=== PATIENT | female | born 2000 | race Two or more races ===

== ENCOUNTER → 2023-08-07 | Outpatient (CLI) | payer BC ==
[2023-08-07 08:48] LABS: Basophils # (auto) 0 10 ^3/uL (0-0.2); Basophils % (auto) 0.5 % (0.0-2.0); Eosinophils # (auto) 0.1 10 ^3/uL (0-0.8); Eosinophils % (auto) 1.5 % (0.0-7.0); Hematocrit 40.6 % (36.0-46.0); Hemoglobin 13.8 g/dL (12.2-16.2); Lymphocytes # (auto) 2.2 10 ^3/uL (0.4-5.4); Lymphocytes % (auto) 26.5 % (10.0-50.0); Mean Corpuscular Hemoglobin 30.6 pg (28.0-32.0); Mean Corpuscular Volume 89.9 fL (80.0-100.0); Monocytes # (auto) 0.6 10 ^3/uL (0-1.3); Monocytes % (auto) 7.8 % (0.0-12.0); Neutrophils # (auto) 5.3 10 ^3/uL (1.6-8.6); Neutrophils % (auto) 63.7 % (37.0-80.0); Nucleated Red Blood Cells % 0.1 %; Red Blood Cells 4.52 10^6/uL (4.0-5.20); Red Cell Distribution Width 13.3 % (11.8-14.3); White Blood Cell 8.3 10^3/uL (4.4-10.8)
[2023-08-07 08:54] LABS: Urine Bacteria FEW /hpf (None Seen); Urine Blood Negative /uL (Negative); Urine Clarity Clear (Clear); Urine Color Yellow (Yellow); Urine Mucus FEW (None Seen); Urine Protein, UAD TRACE (Negative); Urine Specific Gravity 1.025 (1.001-1.035); Urine Urobilinogen Normal (Negative); Urine WBC 1 /hpf (0 - 5); Urine pH 6.5 (5.0-8.0)
[2023-08-07 09:17] LABS: Alanine Aminotransferase 10 U/L (7-40); Albumin 4.5 g/dL (3.2-4.8); Alkaline Phosphatase 63 U/L (46-116); Anion Gap 6 (5-15); Aspartate Aminotransferase 12 U/L (13-40); Calcium 9.9 mg/dL (8.5-10.1); Carbon Dioxide 25 mmol/L (20-30); Chloride 106 mmol/L (98-107); Cholesterol 137 mg/dL (< 200); Glucose 83 mg/dL (74-106); LDL Cholesterol 87 mg/dL (< 100); Potassium 4.3 mmol/L (3.5-5.1); Sodium 137 mmol/L (136-145); Triglycerides 65 mg/dL (< 150)
[2023-08-07 09:18] LABS: Bilirubin, Total 1.3 mg/dL (0.2-1.0); HDL Cholesterol 44 mg/dL (40-59); Total Protein 7.5 g/dL (5.7-8.2)
[2023-08-07 09:21] LABS: BUN/Creatinine Ratio 6.8 (10.0-20.0); Blood Urea Nitrogen < 5 mg/dL (9-23)
[2023-08-07 09:25] LABS: Creatinine, Urine 276.7 mg/dL (30.0-125.0)
[2023-08-07 09:29] LABS: Thyroid Stimulating Hormone 0.51 uIU/mL (0.55-4.78)
== END | disposition home or self-care (01) ==
LOC: LAB 07:54
PROVIDERS: ATTEND Family Medicine
DX: Z13.29 Encounter for screening for other suspected endocrine disorder (principal); Z13.220 Encounter for screening for lipoid disorders; Z13.1 Encounter for screening for diabetes mellitus
CPT/HCPCS: 36415; 80053; 80061; 81001; 82043; 82570; 83036; 84439; 84443; 84702; 85025; 87086

== ENCOUNTER 2023-10-28 09:54 | Inpatient (IN) | payer BC ==
[~2023-10-28] VITALS: Ht 162.6 cm; Wt 61.5 kg
[2023-10-28] MEDS: D5W/LACTATED RINGERS 1,000 ML IV ONE (13:00)
[2023-10-28] MEDS: ACETAMINOPHEN 325 MG TAB PO ONE (13:00)
[2023-10-28] MEDS: PROCHLORPERAZINE EDISYLATE 5 MG/ML 2ML VIAL IV ONE (13:00)
[2023-10-28 13:27] LABS: Basophils # (auto) 0 10 ^3/uL (0-0.2); Basophils % (auto) 0.2 % (0.0-2.0); Eosinophils # (auto) 0 10 ^3/uL (0-0.8); Eosinophils % (auto) 0.2 % (0.0-7.0); Hematocrit 39.5 % (36.0-46.0); Hemoglobin 13.5 g/dL (12.2-16.2); Lymphocytes # (auto) 1.9 10 ^3/uL (0.4-5.4); Lymphocytes % (auto) 14.5 % (10.0-50.0); Mean Corpuscular Hemoglobin 31.3 pg (28.0-32.0); Mean Corpuscular Hgb Conc. 34.2 g/dL (32.0-36.0); Mean Corpuscular Volume 91.7 fL (80.0-100.0); Monocytes # (auto) 0.6 10 ^3/uL (0-1.3); Monocytes % (auto) 4.3 % (0.0-12.0); Neutrophils # (auto) 10.4 10 ^3/uL (1.6-8.6); Neutrophils % (auto) 80.8 % (37.0-80.0); Nucleated Red Blood Cells % 0.1 %; Red Blood Cells 4.31 10^6/uL (4.0-5.20); Red Cell Distribution Width 13.6 % (11.8-14.3); White Blood Cell 12.9 10^3/uL (4.4-10.8)
[2023-10-28 13:47] LABS: Alanine Aminotransferase 11 U/L (7-40); Albumin 4.1 g/dL (3.2-4.8); Alkaline Phosphatase 57 U/L (46-116); Anion Gap 6 (5-15); Aspartate Aminotransferase 17 U/L (13-40); BUN/Creatinine Ratio 10.9 (10.0-20.0); Bilirubin, Total 1.4 mg/dL (0.2-1.0); Blood Urea Nitrogen 6 mg/dL (9-23); Calcium 9.2 mg/dL (8.7-10.4); Carbon Dioxide 23 mmol/L (20-30); Chloride 108 mmol/L (98-107); Glucose 71 mg/dL (74-106); Potassium 3.9 mmol/L (3.5-5.1); Sodium 137 mmol/L (136-145); Total Protein 7.4 g/dL (5.7-8.2)
[2023-10-28 13:52] LABS: Urine Bacteria FEW /hpf (None Seen); Urine Blood Negative /uL (Negative); Urine Clarity HAZY (Clear); Urine Color Yellow (Yellow); Urine Mucus FEW (None Seen); Urine Protein, UAD 1+ (Negative); Urine Specific Gravity 1.025 (1.001-1.035); Urine Urobilinogen Normal (Negative); Urine WBC 6 /hpf (0 - 5); Urine pH 7.5 (5.0-8.0)
[2023-10-28 14:06] LABS: Amphetamine Screen, Urine Neg (NEGATIVE); Barbiturate Scree,Urine Neg (NEGATIVE); Benzodiazephine Screen, Urine Neg (NEGATIVE); Cannabinoid Screen, Urine Neg (NEGATIVE); Cocaine Screen, Urine Neg (NEGATIVE); Opiate Scree,Urine Neg (NEGATIVE); Phencyclidine Screen, Urine Neg (NEGATIVE)
[2023-10-28] MEDS: cefTRIAXone 1GM/50ML D5W 50 ML IV ONE (15:00)
[2023-10-28] MEDS ORDERED: PROCHLORPERAZINE EDISYLATE 5 MG/ML 2ML VIAL IV PRN (15:00)
[2023-10-28] MEDS ORDERED: MORPHINE SULFATE INJ 2 MG/ml SYRG IV PRN (15:00)
[2023-10-28] MEDS ORDERED: NITROGLYCERIN 0.4 MG SL TAB SL PRN (15:00)
[2023-10-28] MEDS ORDERED: ACETAMINOPHEN 325 MG TAB PO PRN (15:00)
[2023-10-28] MEDS ORDERED: DOCUSATE SOD 100 MG CAP PO PRN (15:00)
[2023-10-28 18:15] VITALS: PULSE 92; RESP 16; O2SAT 96
[2023-10-28] MEDS: SODIUM CHLORIDE 0.9% 1,000 ML IV SCH (18:30)
[2023-10-28 20:00] VITALS: BP 101/57; PULSE 65; RESP 19; TEMP 98.7; O2SAT 98
[2023-10-29] VITALS (8 sets, daily range): BP systolic 87–103; BP diastolic 44–75; PULSE 70–86; RESP 16–20; TEMP 97.3–98.5; O2SAT 95–100
[2023-10-29 05:37] LABS: Basophils # (auto) 0 10 ^3/uL (0-0.2); Basophils % (auto) 0.3 % (0.0-2.0); Eosinophils # (auto) 0.1 10 ^3/uL (0-0.8); Eosinophils % (auto) 1.4 % (0.0-7.0); Hematocrit 33.5 % (36.0-46.0); Hemoglobin 11.6 g/dL (12.2-16.2); Lymphocytes # (auto) 2.5 10 ^3/uL (0.4-5.4); Lymphocytes % (auto) 25.8 % (10.0-50.0); Mean Corpuscular Hemoglobin 31.3 pg (28.0-32.0); Mean Corpuscular Hgb Conc. 34.5 g/dL (32.0-36.0); Mean Corpuscular Volume 90.8 fL (80.0-100.0); Monocytes # (auto) 0.7 10 ^3/uL (0-1.3); Monocytes % (auto) 7.2 % (0.0-12.0); Neutrophils # (auto) 6.2 10 ^3/uL (1.6-8.6); Neutrophils % (auto) 65.3 % (37.0-80.0); Red Blood Cells 3.69 10^6/uL (4.0-5.20); White Blood Cell 9.5 10^3/uL (4.4-10.8)
[2023-10-29 05:53] LABS: Albumin 3.2 g/dL (3.2-4.8); Alkaline Phosphatase 45 U/L (46-116); Anion Gap 4 (5-15); Aspartate Aminotransferase 14 U/L (13-40); Calcium 8.3 mg/dL (8.7-10.4); Carbon Dioxide 21 mmol/L (20-30); Chloride 112 mmol/L (98-107); Glucose 80 mg/dL (74-106); Potassium 3.8 mmol/L (3.5-5.1); Sodium 137 mmol/L (136-145)
[2023-10-29 05:54] LABS: Bilirubin, Total 1.2 mg/dL (0.2-1.0); Total Protein 5.8 g/dL (5.7-8.2)
[2023-10-29 06:03] LABS: Alanine Aminotransferase < 9 U/L (7-40); BUN/Creatinine Ratio 10.2 (10.0-20.0); Blood Urea Nitrogen < 5 mg/dL (9-23)
[2023-10-29] MEDS: cefTRIAXone 1GM/50ML D5W 50 ML IV SCH (08:25)
[2023-10-29] MEDS: ONDANSETRON HCL 4 MG/2 ML VIAL IV PRN (08:25)
[2023-10-30 01:00] VITALS: BP 103/61; PULSE 75; RESP 18; TEMP 97.8; O2SAT 97
[2023-10-30 05:00] VITALS: BP 104/65; PULSE 82; RESP 18; TEMP 97.6; O2SAT 97
[2023-10-30] MEDS ORDERED: NITR-87 PO (07:14)
[2023-10-30 08:00] VITALS: O2SAT 96
[2023-10-30 08:27] VITALS: BP 95/56; PULSE 70; RESP 15; TEMP 97.6; O2SAT 98
[2023-10-30 11:57] VITALS: BP 106/55; PULSE 80; RESP 16; TEMP 98; O2SAT 98
== END 2023-10-30 12:30 | disposition home or self-care (01) | DRG 832 ==
LOC: ER 09:54 → OVERFLOW 15:03 → WEST WING 18:41
PROVIDERS: ADMIT Nurse Practitioner Family; ATTEND Obstetrics & Gynecology
DX: O21.1 Hyperemesis gravidarum with metabolic disturbance (principal); N30.00 Acute cystitis without hematuria; O23.12 Infections of bladder in pregnancy, second trimester; Z3A.20 20 weeks gestation of pregnancy; O99.282 Endocrine, nutritional and metabolic diseases complicating pregnancy, second trimester; E86.0 Dehydration
CPT/HCPCS: 36415; 76805; 80053; 80307; 81001; 82010; 83735; 84443; 84702; 85025; 87086; G0378; J2405